=== PATIENT | female | born 1965 | race Caucasian/White ===

== ENCOUNTER → 2021-03-15 14:40 | Outpatient (BNVA) | payer SELFPAY | PROVIDERS: Visit Provider Physician Assistant | DX: S80.02XA Contusion of left knee, initial encounter (principal); W01.0XXA Fall on same level from slipping, tripping and stumbling without subsequent striking against object, initial encounter | CPT/HCPCS: 73564; 99203 ==

== ENCOUNTER → 2021-03-18 13:57 | Outpatient (BNVA) | payer OTHER, SELFPAY | PROVIDERS: Visit Provider Physician Assistant Medical | DX: S80.02XA Contusion of left knee, initial encounter (principal); S83.422A Sprain of lateral collateral ligament of left knee, initial encounter; S93.402A Sprain of unspecified ligament of left ankle, initial encounter; W18.30XA Fall on same level, unspecified, initial encounter | CPT/HCPCS: 99213 ==

== ENCOUNTER → 2021-03-25 09:29 | Outpatient (BNVA) | payer OTHER, SELFPAY | PROVIDERS: Visit Provider Physician Assistant Medical | DX: S80.02XD Contusion of left knee, subsequent encounter (principal); S83.412D Sprain of medial collateral ligament of left knee, subsequent encounter; S93.402D Sprain of unspecified ligament of left ankle, subsequent encounter; W18.30XD Fall on same level, unspecified, subsequent encounter | CPT/HCPCS: 99213 ==

== ENCOUNTER 2021-06-02 09:00 | Outpatient (RCR) | payer OTHER, SELFPAY | END 2021-09-06 09:57 | disposition home or self-care (01) | LOC: HO.PTWFD 09:00 | PROVIDERS: Visit Provider Physician Assistant Medical | DX: S80.02XD Contusion of left knee, subsequent encounter (principal) | CPT/HCPCS: 97110; 97140; 97161; 97530; 97535 ==